=== PATIENT | female | born 2005 | race Caucasian/White ===

== ENCOUNTER 2023-07-21 09:51 | Emergency (ER) | payer BC, OTHER, SELFPAY ==
[2023-07-21 10:00] VITALS: BP 113/76
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
[2023-07-21 11:32] LABS: Urine Albumin Trace (Neg - Trace); Urine Bilirubin Negative (Negative); Urine Character Clear (Clear); Urine Color Yellow; Urine Glucose Negative (Negative); Urine Ketone Negative (Negative); Urine Leukocyte Negative (Negative); Urine Nitrite Negative (Negative); Urine Occult Blood Trace (Negative); Urine Urobilinogen Negative (Neg - 1+)
[2023-07-21 11:41] LABS: HCG, Urine Qualitative Screen Negative
[2023-07-21 11:47] LABS: ALT (SGPT) 17 U/L (0-35); AST (SGOT) 18 U/L (14-36); Albumin 4.4 g/dl (3.5-5.0); Alkaline Phosphatase 70 U/L (38-126); Blood Urea Nitrogen 12 mg/dl (7-17); Calcium 9.8 mg/dl (8.4-10.2); Carbon Dioxide 25 mmol/L (22-30); Chloride 105 mmol/L (98-107); Glucose 85 mg/dl (70-99); Sodium 137 mmol/L (135-145); Total Bilirubin 0.8 mg/dl (0.2-1.3); Total Protein 7.4 g/dl (6.3-8.2); eGFR > 60.00
[2023-07-21 11:48] LABS: Urine Squamous Cell 16-20 /LPF (Few)
[2023-07-21 11:50] LABS: Urine Bacteria Few (Negative)
[2023-07-21 12:35] VITALS: BP 105/70
[2023-07-21 13:22] VITALS: BP 114/83
[2023-07-21] MEDS: BACTRIM DS 800 MG/160 MG 1 TABLET PO (13:50)
== END 2023-07-21 13:45 | disposition home or self-care (01) ==
LOC: EMR 09:51
PROVIDERS: EMERGENCY PHYSICIAN Emergency Medicine; FAMILY PHYSICIAN Family Medicine
DX: R33.9 Retention of urine, unspecified (principal); G40.909 Epilepsy, unspecified, not intractable, without status epilepticus; I50.89 Other heart failure; Z87.440 Personal history of urinary (tract) infections; Z94.0 Kidney transplant status
CPT/HCPCS: 99284; 76770; 80053; 81003; 81015; 81025

== ENCOUNTER → 2023-08-09 18:04 | Outpatient (REF) | payer BC, OTHER, SELFPAY | LOC: RAD 18:04 | PROVIDERS: ATTENDING PHYSICIAN Family Medicine | DX: R05.1 Acute cough (principal) | CPT/HCPCS: 71046 ==

== ENCOUNTER → 2023-09-07 11:44 | Outpatient (REF) | payer BC, OTHER, SELFPAY | LOC: RAD 11:44 | PROVIDERS: ATTENDING PHYSICIAN Family Medicine | DX: M54.50 Low back pain, unspecified (principal) | CPT/HCPCS: 72100; 72190 ==

== ENCOUNTER 2024-04-27 10:31 | Emergency (ER) | payer BC, OTHER, SELFPAY ==
[2024-04-27 11:00] VITALS: BP 117/80
--- NOTE | 2024-04-27 14:32 | ED.GENMED ---
History of Present Illness
General
Chief Complaint: Abdominal Symptoms
Source: patient and family (Father)
Exam Limitations: none
Time Seen by Provider: 04/27/24 14:02
Nursing documentation reviewed up to this point in time: agreed with
History of Present Illness
History of Present Illness:
18-year-old female with past medical history of seizures, GERD, renal failure status post kidney transplant in 2019 who presents to the emergency room with her father for evaluation of nausea/vomiting/diarrhea. Patient reports onset of symptoms
around 5 AM and they have been constant all day. She reports nonbloody nonbilious emesis and nonbloody liquid diarrhea multiple episodes of each. Has not been able to keep down any food or liquids and has not been able to keep down her normal
medications which prompted trip to the ER. She also reports associated achiness, chills. She says she has some crampy abdominal pain to be associated with bowel movements. Denies any other complaints.
Past History
Past History
ED Past Medical History: Renal failure, Seizures and Other (Heart failure which resolved renal transplant migraines)
ED Past Surgical History: Tonsilectomy, Urological and Other (Renal transplant)
Social History
Tobacco: Non-smoker
Alcohol: None
Drug: None
Personal: Single
Living: with family
Employment: Employed
Family History
Family History: Other
Review of Systems
Review of Systems
All Other Systems: ROS reviewed and negative except as documented in HPI and ROS
Constitutional: Reports fatigue and chills; Denies fever
EENT: Denies sore throat or runny nose
Respiratory: Denies cough or trouble breathing
Cardiac: Denies chest pain
ABD/GI: Reports abdominal pain, nausea, vomiting and diarrhea; Denies bloody stools
: Denies flank pain
Musculoskeletal: Reports muscle pain (Myalgias); Denies neck pain or back pain
Neurological: Denies dizzy or headache
Phy Exam
Physical Exam
Physical Exam:
General: Awake, alert, oriented x3; no acute distress
Head: Normocephalic, atraumatic
Eyes: Conjunctiva normal, sclera anicteric
Throat: Airway intact, dry mucous membranes
Neck: Trachea midline, supple without meningismus
Lungs: Clear to auscultation bilaterally, no wheezing, rales, rhonchi
Heart: Tachycardia with regular rhythm, no murmurs, gallops, or rubs
Abd: Soft, non distended, minimally tender across lower abdomen
Neuro: No gross deficits
Skin: Dry with poor turgor, no rash
Extremities: Warm and well-perfused, atraumatic
Scores
Heart Failure Risk
Heart Failure Risk Score: Not Applicable
Heart Score for Chest Pain Patients
STEMI patient?: Not applicable
Withdrawal Assessment of Alcohol
Withdrawal Assessment Completed?: Not applicable
Course
Orders/Labs/Results
Orders:
Orders
04/27/24 11:03
Test Result ONCE
04/27/24 14:02
Norovirus by PCR Urgent
ALYSSA Source: Feces/Stool
Specimen Description:
04/27/24 14:30
0.9% Sodium Chloride 1000 ml [Nss] 1,000 ml IV BOLUS
Acetaminophen 1000MG/100Ml [Ofirmev] 1,000 mg in 100 ml IV ONCE
Acetaminophen IV Indication:: ED Narcotic Naive Pt-ONCE
Ondansetron Injectable [Zofran] 4 mg IV NOW STA
04/27/24 15:12
COVID-19 Antigen Urgent
Source: Nasal Swab
Complete Blood Count/With Diff Urgent
Comprehensive Metabolic Panel Urgent
HCG, Serum Qualitative Screen Urgent
Influenza A+B Rapid Molecular Urgent
ALYSSA Source: Nasal Swab
Specimen Description:
04/27/24 15:44
0.9% Sodium Chloride 1000 ml [Nss] 1,000 ml IV BOLUS
04/27/24 18:30
Encourage PO Hydration-Treatme ONCE
04/27/24 18:56
Ondansetron Injectable [Zofran] 4 mg .ROUTE .STK-MED ONE
04/27/24 18:58
Ondansetron Injectable [Zofran] 4 mg IV NOW STA
04/27/24 19:00
0.9% Sodium Chloride 500 ml [Nss] 500 ml IV 150 mls/hr
Abnormal Lab Results
04/27/24
15:12
RBC 5.57 H 10^6/uL
(4.20-5.40)
MCV 78.3 L fL
(81.0-99.0)
MCH 25.1 L pg
(27.0-31.0)
MCHC 32.1 L g/dL
(33.0-37.0)
RDW 14.6 H %
(11.5-14.5)
Abs Immat Gran (auto) 0.1 H 10^3/uL
(0-0.05)
Absolute Neuts (auto) 8.2 H 10^3/uL
(1.4-6.5)
Absolute Lymphs (auto) 0.2 L 10^3/uL
(1.2-3.4)
Immature Gran % 0.7 H %
(0-0.5)
Neutrophils % 92.3 H %
(42.2-75.2)
Lymphocytes % 2.6 L %
(20.5-51.1)
Total Protein 8.4 H g/dl
(6.3-8.2)
Albumin 5.2 H g/dl
(3.5-5.0)
04/27/24 15:12
04/27/24 15:12
Vital Signs
Initial and Last Documented VS:
Initial Vital Signs
Temp Pulse Resp BP Pulse Ox
36.2 C 122 18 117/80 98
04/27/24 11:00 04/27/24 11:00 04/27/24 11:00 04/27/24 11:00 04/27/24 11:00
Last Documented Vital Signs
Temp Pulse Resp BP Pulse Ox
36.2 C 95 16 107/67 96
04/27/24 11:00 04/27/24 19:00 04/27/24 18:45 04/27/24 19:00 04/27/24 19:00
MDM/Problems Addressed
Differential Diagnosis Includes:
Gastroenteritis, cholelithiasis/cholecystitis, appendicitis/diverticulitis considered somewhat less likely
MDM/Problems Addressed:
18-year-old female who is status post renal transplant in 2019 presents for evaluation of nausea, vomiting, diarrhea that started at 5 AM associated with myalgias/malaise, chills, crampy abdominal pain with bowel movements. She is tachycardic, exam
as above�she does appear dehydrated. Will place an IV send labs including a CBC and a CMP, hCG. Check swab for COVID and flu, norovirus testing. Will provide IV fluids, Zofran, Tylenol. Hold on abdominal imaging for now�her clinical picture is
most consistent with viral syndrome/gastroenteritis; she has mostly crampy pain with bowel movements is minimally tender and given her history of renal transplant would hesitate to perform contrast-enhanced study. Will reassess after the above.
Labs reviewed: CBC shows no leukocytosis, CMP shows no clinically significant abnormalities�acceptable renal function and electrolytes. hCG negative. COVID and flu negative. After Zofran and fluids patient is feeling a bit better. Requesting
p.o. trial with meds and apple juice. Will provide additional fluids�heart rate has improved still in the 90s. Continue to monitor.
Patient tolerated medication and juice well, trial p.o. food, maintenance fluids. She is feeling well. If continues to pass p.o. challenge without additional vomiting will plan to discharge�this is patient's preference; I did offer admission for
fluids and monitoring of symptoms.
Tolerating p.o., no additional vomiting. Making good urine here. Stable for discharge, spoke about return precautions all questions answered.
Chronic conditions affecting care:
Kidney disease status post transplant
*Pulse Oximetry
Patient hypoxic: no
*Critical Care Note
Total Time (30-74mins, 75-104mins- exclusive of procedures): Not Applicable
Data Reviewed
Review of Other/Old Records Reveals: Labs and Records
Source: patient, records and family
Patient Management
Escalation/DeEscalation of care consider admission/obs:
Offered admission for observation and symptom control�patient prefers discharge
ED Attending Note
-
Portions of this chart may have been created with voice recognition software.� Occasional wrong word or��sound alike� substitutions may have occurred due to the inherent limitations of voice recognition software.
Discharge Plan
Departure
Patient Disposition: Home (Routine Discharge)
Date of Disposition: 04/27/24
Time of Disposition: 19:41
Patient with high blood pressure during this ER visit?: No
Discharge Problem:
Nausea & vomiting, Acute dehydration
Instructions: Dehydration, Adult (DC), Nausea and Vomiting, Adult (DC)
Prescriptions:
New
ondansetron 4 mg tablet,disintegrating
4 mg PO TIDPRN PRN (Reason: nausea/vomiting) Qty: 20 0RF
No Action
ondansetron 4 mg tablet,disintegrating
4 mg PO Q8H PRN (Reason: nausea and vomiting) Qty: 20 0RF
sulfamethoxazole-trimethoprim [Bactrim DS] 800-160 mg tablet
1 tab PO BID Qty: 5 0RF
phenazopyridine [Pyridium] 200 mg tablet
200 mg PO TID PRN (Reason: Pain) Qty: 7 0RF
Referrals:
Merly Ledesma MD [Family Provider] - Follow up in 2-3 days
Activity Restrictions/Additional Instructions:
Thank you for visiting the Emergency Department at [facility].
1. Please schedule a follow up appointment as directed. Call first thing tomorrow morning to make an appointment.
2. If indicated, please take your medications as instructed and indicated on discharge paperwork.
3. If any of your symptoms do not improve, or persist, or become more severe within 6-12 hours, please return to the emergency department for further care.
4. Please return to the emergency department if you develop a headache, neck pain/stiffness, fever greater than 100.4F, chest pain, shortness of breath, persistent nausea, vomiting, slurred speech, difficulty walking, numbness/tingling, weakness,
signs of infection or any other symptoms that are worrisome to you.
Please call [phone] if you have any questions.
Interventions
Interventions:
*Risk Screen - Suicide Last Done: 04/27/24 11:00
*General Assessment Last Done: 04/27/24 11:00
*Neglect/Abuse Screening Last Done: 04/27/24 15:26
*ED COVID-19 Vaccine History Last Done: 04/27/24 11:00
ZR-Khmwkg-Tpptidaylv Assessment Last Done: 04/27/24 15:26
Discharge Date and Time
Print Language: LAO
[2024-04-27] MEDS: NSS 1000 IV ×2 (15:05→16:22)
[2024-04-27] MEDS: ZOFRAN 4 MG IV ×2 (15:05→18:59)
[2024-04-27] MEDS: OFIRMEV 100 IV (15:05)
[2024-04-27 15:18] VITALS: BMI 32.3
[2024-04-27 15:19] VITALS: BP 110/72
[2024-04-27 15:32] LABS: % Basophils 0.3 % (0-2); % Eosinophils 0.1 % (0-6); % Immature Granulocytes 0.7 % (0-0.5); % Lymphocytes 2.6 % (20.5-51.1); % Neutrophils 92.3 % (42.2-75.2); Absolute Immature Granulocytes 0.1 10^3/uL (0-0.05); Absolute Lymphocytes 0.2 10^3/uL (1.2-3.4); Absolute Monocytes 0.4 10^3/uL (0.1-0.6); Absolute Neutrophils 8.2 10^3/uL (1.4-6.5); Hematocrit 43.6 % (37.0-47.0); Mean Corp Hgb Conc. 32.1 g/dL (33.0-37.0); Mean Corpuscular Hgb 25.1 pg (27.0-31.0); Mean Corpuscular Volume 78.3 fL (81.0-99.0); Mean Platelet Volume 9.6 fL (7.4-10.4); Nucleated Red Blood Cells % 0 %; Platelet Count 289 10^3/uL (130-400); Red Blood Cell Count 5.57 10^6/uL (4.20-5.40); Red Cell Dist. Width 14.6 % (11.5-14.5); White Blood Cell Count 8.9 10^3/uL (4.8-10.8)
[2024-04-27 15:38] LABS: ALT (SGPT) 19 U/L (0-35); AST (SGOT) 23 U/L (14-36); Albumin 5.2 g/dl (3.5-5.0); Alkaline Phosphatase 79 U/L (38-126); Blood Urea Nitrogen 15 mg/dl (7-17); Calcium 10.1 mg/dl (8.4-10.2); Carbon Dioxide 23 mmol/L (22-30); Chloride 101 mmol/L (98-107); Estimated Creatinine Clearance > 125 ml/min; Glucose 99 mg/dl (70-99); Potassium 4.6 mmol/L (3.5-5.1); Sodium 136 mmol/L (135-145); Total Bilirubin 0.7 mg/dl (0.2-1.3); Total Protein 8.4 g/dl (6.3-8.2); eGFR > 60.00
[2024-04-27 15:43] LABS: HCG, Serum Qualitative Screen Negative
[2024-04-27 15:44] LABS: COVID-19 Antigen Negative (Negative)
[2024-04-27 16:00] VITALS: BP 105/67
[2024-04-27 17:00] VITALS: BP 100/65
[2024-04-27 18:00] VITALS: BP 98/66
[2024-04-27 19:00] VITALS: BP 107/67
== END 2024-04-27 20:12 | disposition home or self-care (01) ==
LOC: EMR 10:31
PROVIDERS: Emergency Medicine; EMERGENCY PHYSICIAN Emergency Medicine; FAMILY PHYSICIAN Family Medicine
DX: R11.2 Nausea with vomiting, unspecified (principal); E86.0 Dehydration; K21.9 Gastro-esophageal reflux disease without esophagitis; Z94.0 Kidney transplant status; Z11.52 Encounter for screening for COVID-19
CPT/HCPCS: 99284; 96374; 96375; 96376; 96361 ×2; 80053; 84703; 85025; 87502; 87811

== ENCOUNTER 2024-07-22 20:20 | Emergency (ER) | payer BC, OTHER, SELFPAY ==
[2024-07-22 20:35] VITALS: BP 121/89
[2024-07-22 20:47] LABS: Glucose - Point of Care 101 mg/dl (70-99)
[2024-07-22 21:08] LABS: Hematocrit 36.9 % (37.0-47.0); Hemoglobin 12.4 g/dL (12.0-16.0); Mean Corp Hgb Conc. 33.6 g/dL (33.0-37.0); Mean Corpuscular Hgb 26.3 pg (27.0-31.0); Mean Corpuscular Volume 78.3 fL (81.0-99.0); Mean Platelet Volume 9.4 fL (7.4-10.4); Platelet Count 340 10^3/uL (130-400); Red Blood Cell Count 4.71 10^6/uL (4.20-5.40); Red Cell Dist. Width 13.7 % (11.5-14.5); White Blood Cell Count 10.9 10^3/uL (4.8-10.8)
[2024-07-22 21:22] LABS: ALT (SGPT) 13 U/L (0-35); AST (SGOT) 15 U/L (14-36); Albumin 5.1 g/dl (3.5-5.0); Alkaline Phosphatase 71 U/L (38-126); Blood Urea Nitrogen 17 mg/dl (7-17); Calcium 10.5 mg/dl (8.4-10.2); Carbon Dioxide 27 mmol/L (22-30); Chloride 102 mmol/L (98-107); Glucose 107 mg/dl (70-99); Potassium 4.6 mmol/L (3.5-5.1); Sodium 142 mmol/L (135-145); Total Bilirubin 0.4 mg/dl (0.2-1.3); Total Protein 8.3 g/dl (6.3-8.2); eGFR > 60.00
[2024-07-22 22:11] VITALS: BMI 32.9
[2024-07-22 22:16] VITALS: BP 116/82
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
[2024-07-22 23:00] VITALS: BP 118/82
[2024-07-23] VITALS: BP 105/66
[2024-07-23 00:20] LABS: Monotest Positive (Negative)
[2024-07-23 01:00] VITALS: BP 124/80
[2024-07-23 01:42] LABS: COVID-19 Antigen Negative (Negative)
== END 2024-07-23 02:29 | disposition home or self-care (01) ==
LOC: EMR 20:20
PROVIDERS: Physician Assistant; Student in an Organized Health Care Education/Training Program; EMERGENCY PHYSICIAN Student in an Organized Health Care Education/Training Program; FAMILY PHYSICIAN Family Medicine
DX: B27.90 Infectious mononucleosis, unspecified without complication (principal); Z11.52 Encounter for screening for COVID-19; Z94.0 Kidney transplant status; K21.9 Gastro-esophageal reflux disease without esophagitis
CPT/HCPCS: 99285; 70450; 80053; 82962; 85027; 86308; 87811; 93005

== ENCOUNTER 2024-09-03 18:26 | Emergency (ER) | payer SELFPAY ==
[2024-09-03 18:32] VITALS: BP 124/86
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
[2024-09-03 22:48] VITALS: BP 132/82
== END 2024-09-03 22:55 | disposition home or self-care (01) ==
LOC: EMR 18:26
PROVIDERS: EMERGENCY PHYSICIAN Emergency Medicine; FAMILY PHYSICIAN Family Medicine
DX: S16.1XXA Strain of muscle, fascia and tendon at neck level, initial encounter (principal); V49.40XA Driver injured in collision with unspecified motor vehicles in traffic accident, initial encounter; I50.89 Other heart failure; Z94.0 Kidney transplant status
CPT/HCPCS: 99283; 72040

== ENCOUNTER → 2024-12-22 15:17 | Outpatient (REF) | payer BC, SELFPAY | LOC: RAD 15:17 | PROVIDERS: ATTENDING PHYSICIAN Nurse Practitioner Primary Care; FAMILY PHYSICIAN Family Medicine | DX: R05.9 Cough, unspecified (principal) | CPT/HCPCS: 71046 ==